=== PATIENT | female | born 1945 | race Caucasian/White ===

== ENCOUNTER → 2016-12-09 | Day surgery (SDC) | payer MEDICARE ==
[~2016-12-09] MED LIST: BUPIVACAINE/EPINEPHRINE 0.25% PF 30 ML VIAL ONE; KETOROLAC TROMETHAMINE 30 MG/ML (IVP) VIAL IV PUSH ONE; LACTATED RINGER'S 1000 ML INJ 1,000 ML ONE; MIDAZOLAM HCL 2 MG/2 ML VIAL ONE; ONDANSETRON HCL 4 MG/2 ML VIAL IV PUSH ONE; PROPOFOL 200 MG/20 ML AMP IV ONE; ceFAZolin 2 GM PREMIX 50 ML ONE; metroNIDAZOLE 500 MG INJ 100 ML IV ONE
--- NOTE | 2016-12-09 14:51 | TN ---
cc: HADLEY MONTES M.D. DATE OF SURGERY: 12/09/2016 PREOPERATIVE DIAGNOSIS Chronic calculous cholecystitis. POSTOPERATIVE DIAGNOSIS Acute and chronic calculous cholecystitis PROCEDURE Laparoscopic cholecystectomy. SURGEON Dr. Hadley Montes ANESTHESIA General. INDICATIONS A very pleasant 71-year-old woman who has had recurrent episodes of upper abdominal pain and nausea. Work-up demonstrated an ultrasound which showed gallstones and some thickening of the gallbladder wall. Recommendations were made for laparoscopic cholecystectomy. INTRAOPERATIVE FINDINGS Inflamed, thickened wall of the gallbladder with acute inflammatory omental adhesions consistent with both acute and chronic calculous cholecystitis. ESTIMATED BLOOD LOSS Less than 10 mL. The surgical procedure was assisted by my nurse practitioner. My PATTERN REPAIR PERSON's presence was necessary throughout the case for adequate visualization of the gallbladder and surrounding anatomy during this laparoscopic procedure. My PATTERN REPAIR PERSON was assisting me throughout the duration of the procedure. The skill set of a nurse practitioner was medically necessary to complete the procedure. During the surgical case the regional vice president surgical sales was working the back table and providing appropriate instrumentation to the nurse practitioner who was directly assisting me. DESCRIPTION OF PROCEDURE IN DETAIL The patient was identified as Sharon Rizo, taken to the operating room and placed in supine position. Sequential compression devices were placed on bilateral lower extremities. Following induction of adequate general endotracheal anesthesia the patient's abdomen was prepped and draped in the usual sterile fashion with Betadine. A timeout procedure was performed. Following completion of the timeout procedure to everyone's satisfaction within the room, 0.25% Marcaine with epinephrine was placed at each incision site. An infraumbilical about 2 cm incision was carried out with a scalpel and dissection continued posteriorly. The base of the umbilicus was retracted anteriorly and the fascia was incised in a vertical fashion. Entry into the peritoneal cavity was facilitated with a hemostat. The surgeon's finger confirmed intraperitoneal location. The [employer] balloon Mleita trocar was placed in the peritoneal cavity, its balloon inflated with CO2 insufflation until a level of 15 mmHg ensued. The patient was placed in a reverse Trendelenburg position turned to the left. Two upper abdominal 5 mm trocars were placed in the peritoneal cavity under direct laparoscopic view after incision of the skin with a scalpel. The gallbladder was immediately identified beneath inflammatory adhesions which were fairly filmy and acute. These were taken down with blunt dissection and the Harmonic scalpel. The gallbladder was densely adherent to the gallbladder fossa and the liver and there was not a very generous plane between the gallbladder and the liver. The gallbladder was entered at least on two occasions and bile was suctioned out using a suction irrigation device. No stones were spilled. The gallbladder was removed from the gallbladder fossa in the dome-down technique using the Harmonic scalpel. The cystic artery was isolated from surrounding tissues and divided with the Harmonic scalpel. The cystic duct was isolated from surrounding tissues and ligated distally with 0-PDS Endoloop. The gallbladder was divided at its junction with the cystic duct and placed into an Endo retriever bag and removed through the infraumbilical fascial port incision site and passed off the field for pathologic evaluation. The right upper quadrant was examined. The gallbladder fossa was hemostatic. A small defect in the right lateral lobe of the liver which had been created by a grasper had clot and was not actively bleeding. Blood loss throughout the case was only about 10 cc. The cystic duct ligature remained intact. There was no bilious or bloody drainage. The remaining local anesthetic was placed in the right upper quadrant. The trocars were removed under direct visualization. There was no evidence of bleeding from the trocar sites. The abdomen was desufflated through the infraumbilical port which was then removed. The infraumbilical fascial incision was closed with interrupted 0 Vicryl sutures. Port sites were irrigated with saline. Skin incisions were approximated with 4-0 Monocryl subcuticular sutures. Dressings were applied with Mastisol and half-inch brown Steri-Strips. The patient tolerated the procedure without apparent complication. Sponge, needle and instrument counts were correct at the end of the case. MD BALDEV Mackey/MANASA /2:13 PM /2:27 PM
== END | disposition home or self-care (01) ==
LOC: ESDC 09:33
PROVIDERS: ATTEND Surgery Trauma Surgery
DX: K80.12 Calculus of gallbladder with acute and chronic cholecystitis without obstruction (principal)
CPT/HCPCS: 00790; 47562; 88304; J0690; J1885; J2250; J2405; J3010; J7120